=== PATIENT | female | born 1950 | race Caucasian/White ===

== ENCOUNTER 2016-11-03 08:03 | Day surgery (SDC) | payer BC ==
[~2016-11-03] VITALS: Ht 172.7 cm; Wt 94.3 kg
[2016-11-03 09:23] LABS: HEMOGLOBIN 13.6 g/dL (12-16); MCH 31.8 pg (26.0-34.0); MCHC 33.2 g/dL (31.0-37.0); MCV 95.8 fL (80.0-100.0); MEAN PLATELET VOLUME 11.1 fL (7.4-10.4); RBC 4.28 10x6/uL (4.00-5.40); RDW 12.9 % (11.5-14.5); WBC 4.5 10x3/uL (4.8-10.8)
[2016-11-03] MEDS ORDERED: MULTI-DAY VITAM1 TAB PO (10:12)
[2016-11-03] MEDS ORDERED: ZOLOFT100 MG PO (10:12)
[2016-11-03 10:13] VITALS: Ht 172.7 cm; Wt 94.3 kg
[2016-11-03] MEDS ORDERED: HYDROCODONE-APA1 TAB PO (11:30)
--- NOTE | 2016-11-03 14:25 | NUR ---
1200 IV DC WITH CATHER TIP INTACT
--- NOTE | 2016-11-07 12:58 | OP ---
PATIENT NAME: MIKHAIL GUTIERREZ MEDICAL RECORD: [id number] :52 LOCATION:[facility] ADMISSION DATE: SURGEON: MARISSA MCFADDEN MD DATE OF OPERATION: 11/03/2016 PREOPERATIVE DIAGNOSIS: Left shoulder adhesive capsulitis. POSTOPERATIVE DIAGNOSIS: Left shoulder adhesive capsulitis. PROCEDURE PERFORMED: Left shoulder manipulation under anesthesia. SURGEON: Jerry Mcfadden MD. ANESTHESIA: TIVA with supraclavicular block. CONDITION: She tolerated the procedure well, was transferred to the recovery room in stable condition. INDICATIONS: This is a 65-year-old female that has had painful limited shoulder motion. She has not had anything significant on her MRI. We discussed options and elected to proceed with a shoulder manipulation. She understood the risks, benefits, and alternatives including continued pain and continued loss of motion. OPERATIVE REPORT: The patient was taken to the OR and placed in supine position. TIVA anesthesia was obtained. She had had a block placed in the preop holding area. In the operating room, her left shoulder was confirmed to be the correct shoulder, following which it was taken through range of motion with forward elevation, abduction, internal and external rotation. There was significant amount of popping in the forward elevation and rotation positions. Also, with cross body adduction, she had significant popping consistent with breaking up of adhesions. Once this was accomplished, she was awakened and taken back to the outpatient surgery area in stable condition. We will get her to continue range of motion and see her back in the office in about 10-12 days. TRANSINT:[id number] Voice Confirmation ID: [id number] DOCUMENT ID: [id number] MARISSA MCFADDEN MD at 1258 CC: [id number] DICTATION DATE: 11/03/16 1139 OPERATIONS RESEARCH DIRECTOR: 11/03/16 2043 [facility] 11/03/16 [place] [id number]
== END 2016-11-03 12:15 | disposition home or self-care (01) ==
LOC: D.OPS 08:03 → D.PAN 10:15 → D.OPS 10:15
PROVIDERS: Anesthesiology
DX: M75.02 Adhesive capsulitis of left shoulder (principal)

== ENCOUNTER 2019-03-11 08:00 | Outpatient (CLI) | payer MEDICARE, BC ==
[2016-11-03 10:13] VITALS: BMI 31.6
[~2019-03-11 08:00] MED LIST: HYDROCODONE-APA1 TAB PO; MULTI-DAY VITAM1 TAB PO; ZOLOFT100 MG PO
== END 2019-03-11 08:30 | disposition home or self-care (01) ==
LOC: D.MAMMO 08:00
PROVIDERS: ATTEND Family Medicine
DX: Z12.31 Encounter for screening mammogram for malignant neoplasm of breast (principal)

== ENCOUNTER → 2019-04-03 09:00 | Outpatient (CLI) | payer MEDICARE, BC ==
[2016-11-03 10:13] VITALS: BMI 31.6
== END | disposition home or self-care (01) ==
LOC: D.MAMMO 09:00
PROVIDERS: ATTEND Family Medicine
DX: R92.8 Other abnormal and inconclusive findings on diagnostic imaging of breast (principal)

== ENCOUNTER → 2020-01-21 12:40 | Outpatient (CLI) | payer MEDICARE, BC ==
[2016-11-03 10:13] VITALS: BMI 31.6
[~2020-01-21 12:40] MED LIST changes: +ALENDRONATE SOD10 MG PO; +COZAAR100 MG PO
== END | disposition home or self-care (01) ==
LOC: D.LABREF 12:40
PROVIDERS: ATTEND Internal Medicine Pulmonary Disease
DX: Z11.59 Encounter for screening for other viral diseases (principal)

== ENCOUNTER 2020-01-23 07:05 | Day surgery (SDC) | payer MEDICARE, BC ==
[2020-01-21 09:49] LABS: HEMATOCRIT 45.6 % (36.0-48.0); HEMOGLOBIN 15.2 g/dL (12-16); MCH 31.5 pg (26.0-34.0); MCHC 33.3 g/dL (31.0-37.0); MCV 94.4 fL (80.0-100.0); MEAN PLATELET VOLUME 10.3 fL (7.4-10.4); RBC 4.83 10x6/uL (4.00-5.40); RDW 13.3 % (11.5-14.5); WBC 7.7 10x3/uL (4.8-10.8)
[~2020-01-23] VITALS: Ht 172.7 cm; Wt 108.9 kg
[2020-01-23 07:27] VITALS: BP 154/75; Ht 172.7 cm; Wt 108.9 kg
--- NOTE | 2020-01-25 08:10 | OP ---
PATIENT NAME: MIKHAIL GUTIERREZ MEDICAL RECORD: [id number] :52 LOCATION:[facility] ADMISSION DATE: SURGEON: JEROME ASKEW DO DATE OF OPERATION: 01/23/2020 PROCEDURE PERFORMED: Right knee arthroscopy with partial medial and partial lateral meniscectomies. PREOPERATIVE DIAGNOSIS: Right knee medial and lateral meniscal tears. POSTOPERATIVE DIAGNOSIS: Right knee medial and lateral meniscal tears. INDICATIONS: Ms. Gutierrez is a 69-year-old female who has had catching, locking, popping of her right knee. She had an MRI, which showed a meniscal tear in the medial meniscus and some fraying on the lateral meniscus. I informed her that she would probably do well with a knee scope as she had more meniscal symptoms, she had very minimal to no arthritis on the MRI. She was aware of the other risks including infection, bleeding, damage to nerves and vessels, need for further surgery, continued pain and arthrofibrosis of the knee, blood clots, and even and she signed the consent. SURGEON: Jerome Askew DO DESCRIPTION OF PROCEDURE: The patient was taken to the operative suite, placed in supine position, given general anesthetic, LMA was placed. Two grams of Ancef were given. The right lower extremity was then prepped and draped in sterile fashion. A timeout was performed and everyone was in agreeance with the correct site, side, patient, and procedure. I then began by establishing a lateral portal with an 11-blade scalpel. Trocar was then entered in the joint up into the suprapatellar pouch. The camera was then entered in the suprapatellar pouch. No loose bodies in the lateral medial gutters. I then flexed the knee down. A medial portal was then established with 15-gauge spinal needle and 11-blade scalpel. I then brought in a probe to probe the medial meniscus. There was a tear seen in the posterior horn, starting at the root, and brought in the shaver and biter and cleaned that out back to a stable point. I then looked at the ACL with a probe. There was no tear seen. The ACL was in very good position. I then [id number] the knee and entered the lateral compartment, there was small fraying, tearing if you will of the innermost portion of the lateral meniscus. The shaver was then brought in and cleaned that up. I then inspected the trochlear groove as well as the lateral side of the toe and there were no chondromalacia seen or loose body seen in that. I then turned the water off the suction on excess fluid removed from the knee. The portal sites were then closed with 4-0 Monocryl in an inverted interrupted fashion. Steri-Strips, Adaptic, 4 x 4's, ABD, Webril, Jose wrap were then placed on the knee. She was awakened and taken to recovery in stable condition. ESTIMATED BLOOD LOSS: Minimal. COMPLICATIONS: None. TRANSINT:[id number] Voice Confirmation ID: [id number] DOCUMENT ID: [id number] OPERATIVE REPORT [id number] MIKHAIL GUTIERREZ,JEROME Leal DO at 0810 CC: [id number] DICTATION DATE: 01/23/20 1449 GEAR MACHINIST: 01/23/20 2359 [facility] 01/23/20 [place] [id number] [place] [address]
== END 2020-01-23 11:35 | disposition home or self-care (01) ==
LOC: D.OPS 07:05 → D.PAN 07:40 → D.OPS 07:45
PROVIDERS: Anesthesiology; ATTEND Orthopaedic Surgery
DX: S83.281A Other tear of lateral meniscus, current injury, right knee, initial encounter (principal); S83.241A Other tear of medial meniscus, current injury, right knee, initial encounter; X58.XXXA Exposure to other specified factors, initial encounter

== ENCOUNTER → 2020-03-04 15:01 | Outpatient (CLI) | payer MEDICARE, BC ==
[2020-01-23 07:27] VITALS: BMI 36.5
== END | disposition home or self-care (01) ==
LOC: D.MRI 15:01
PROVIDERS: ATTEND Orthopaedic Surgery
DX: M75.121 Complete rotator cuff tear or rupture of right shoulder, not specified as traumatic (principal)

== ENCOUNTER 2020-05-31 09:30 | Outpatient (CLI) | payer MEDICARE, BC ==
[2020-01-23 07:27] VITALS: BMI 36.5
== END 2020-05-31 10:30 | disposition home or self-care (01) ==
LOC: D.MAMMO 09:30
PROVIDERS: ATTEND Family Medicine
DX: Z12.31 Encounter for screening mammogram for malignant neoplasm of breast (principal)